=== PATIENT | male | born 2000 | race Caucasian/White ===

== ENCOUNTER 2024-09-02 15:52 | Emergency (ER) | payer SELFPAY ==
[2024-09-02] MEDS: Sodium Chloride 0.9% 1,000 ML IV ONE (16:09)
[2024-09-02] MEDS: diphenhydrAMINE 50 MG/ML SDV IVPUSH ONE (16:10)
[2024-09-02] MEDS: methylPREDNISolone Sodium Succinate 125 MG/2 ML SDV IVPUSH ONE (16:10)
[2024-09-02] MEDS: Famotidine 20 MG/2 ML SDV IVPUSH ONE (16:10)
[2024-09-02] MEDS: EPINEPHrine 1 MG/1 ML Amp IM ONE ×2 (16:11→16:20)
[2024-09-02] MEDS: EPINEPHrine 1 MG/1 ML Amp ONE (16:12)
== END 2024-09-02 21:46 | disposition home or self-care (01) ==
LOC: MW.ED 15:52
DX: T78.2XXA Anaphylactic shock, unspecified, initial encounter (principal); Z79.52 Long term (current) use of systemic steroids; Z79.899 Other long term (current) drug therapy; Z75.8 Other problems related to medical facilities and other health care
CPT/HCPCS: 71045; 96361; 96372; 96374; 96375; 99284; J0171; J1200; J2919; J7030; 99283